=== PATIENT | male | born 1935 | race Caucasian/White ===

== ENCOUNTER 2018-11-29 08:40 | Inpatient (IN) | payer OTHER ==
[~2018-11-29] VITALS: Ht 180.3 cm; Wt 77.3 kg
[~2018-11-29 08:40] MED LIST: ROSU10TA PO
[2018-11-29 09:55] LABS: BASOPHILS % (AUTO) 0.4 % (0.0-5.0); EOSINOPHILS % (AUTO) 0.3 % (0.0-8.0); LYMPHOCYTES % (AUTO) 8.4 % (21.0-51.0); MEAN CORPUSCULAR HEMOGLOBIN 32.4 pg (27.0-33.0); MEAN CORPUSCULAR VOLUME 95.4 fL (79-99); MONOCYTES % (AUTO) 9.9 % (3.0-13.0); PLATELET COUNT (AUTO) 212 K/uL (130-400); RED BLOOD CELL COUNT(AUTO) 5.14 MIL/uL (4.50-6.20); RED CELL DISTRIBUTION WIDTH 16.4 % (11.0-15.5); WHITE BLOOD COUNT (AUTO) 6.8 K/uL (4.8-10.8)
[2018-11-29 09:58] LABS: CREATININE 1.1 mg/dL (0.5-1.5)
[2018-11-29 10:02] LABS: ALBUMIN 2.6 g/dL (3.5-5.0); BILIRUBIN,TOTAL 1.6 mg/dL (0.2-1.0); MAGNESIUM 2.4 mg/dL (1.80-2.40); TOTAL PROTEIN, SERUM 7.3 g/dL (6.0-8.3)
[2018-11-29 10:23] LABS: INR 0.97 (0.85-1.15); PARTIAL THROMBOPLASTIN TIME 31.2 SEC (26.3-35.5); PROTHROMBIN TIME 10.2 SEC (9.6-11.6)
[2018-11-29 11:34] LABS: APPEARANCE,URINE Clear (CLEAR); BILIRUBIN,URINE Small (NEGATIVE); COLOR,URINE Dark Yellow (YELLOW); GLUCOSE, URINE (UA) Negative (NEGATIVE); KETONES,URINE Trace mg/dL (NEGATIVE); LEUKOCYTE ESTERASE ,URINE Trace (NEGATIVE); NITRATE,URINE Negative (NEGATIVE); OCCULT BLOOD,URINE Negative (NEGATIVE); PH,URINE 6.5 (5.0-8.0); PROTEIN,URINE Negative (NEGATIVE)
[2018-11-29 11:51] LABS: BACTERIA,URINE None Seen /HPF (None Seen); MUCUS,URINE Moderate LPF (None Seen); RBC,URINE None Seen /HPF (0-1); SQUAMOUS EPITHELIAL CELL,UR 0-2 /HPF (0-2); WBC,URINE 0-1 /HPF (0-1)
[2018-11-29] MEDS ORDERED: POTASSIUM CHLORIDE 10% ELIXIR 20 MEQ/15 ML UDCUP PO PRN (14:00)
[2018-11-29] MEDS ORDERED: ONDANSETRON HCL 4 MG/2 ML VIAL IVP PRN (14:00)
[2018-11-29] MEDS ORDERED: ACETAMINOPHEN 325 MG TAB PO PRN ×2 (14:00)
[2018-11-29] MEDS ORDERED: ZOLPIDEM TARTRATE 5 MG TAB PO PRN (14:00)
[2018-11-29] MEDS ORDERED: NITROGLYCERIN 0.4 MG SL TAB SL PRN (14:00)
[2018-11-29] MEDS ORDERED: DiphenhydrAMINE HCL 50 MG/ML VIAL IVP PRN (14:00)
[2018-11-29] MEDS: SODIUM CHLORIDE 0.9% 1000ML 1,000 ML IV SCH (14:00)
[2018-11-29] MEDS ORDERED: LIDOCAINE HCL-MPF 1% 2ML VIAL IJ PRN (14:00)
[2018-11-29] MEDS ORDERED: POTASSIUM CHLORIDE 20 MEQ ERTAB PO PRN (14:00)
[2018-11-29] MEDS ORDERED: LACTULOSE 20 GM/30 ML UDCUP PO PRN (14:00)
[2018-11-29] MEDS ORDERED: MAG HYDROX/AL HYDROX/SIMETH ES 30 ML SUSP UDCUP PO PRN (14:00)
[2018-11-29] MEDS ORDERED: CLONIDINE HCL 0.1 MG TABLET PO PRN (14:00)
[2018-11-29] MEDS ORDERED: GUAIFENESIN SUGAR-FREE 100 MG/5 ML UDCUP PO PRN (14:00)
[2018-11-29] MEDS ORDERED: POTASSIUM CHLORIDE 20MEQ/100ML 100 ML IV PRN (14:00)
[2018-11-29] MEDS ORDERED: GUAIFENESIN-DM 200/20 MG 10 ML PO PRN (14:00)
[2018-11-29] MEDS ORDERED: DIPHENHYDRAMINE HCL 25 MG CAPSULE PO PRN (14:00)
[2018-11-29] MEDS ORDERED: SODIUM CHLORIDE 0.9% 1000ML 1,000 ML IV ONE (14:10)
--- NOTE | 2018-11-29 19:44 | NUR ---
D/C PLAN Pt with [facility]. CM spoke to dtr named Judith Fernandez. [facility] pt lives with spouse. She is visiting from out of town. [facility] pt was receiving home health for mcfp and PT. Dtr states Dr. Pereira was attempting to place pt at [facility]. Dtr requesting residential case manager f/u with spouse for final d/c plan. Plan for now is short term snf/rehab vs home with same home health. Dtr states pt was ambulating with wk three weeks ago. [facility] pt condition has been declining rapidly. CM asked if pt and family has discussed palliative care. Dtr states pt and spouse currently want to continue to chemo treatment and have not discussed palliative care. [facility] pts oncologist is Dr. Menon. CM explained request can be sent for short term snf/rehab but will need insurance auth. Dtr verbalized understanding. CM to f/u Addendum: 11/29/18 at 1948 by ALEXANDRO SARGENT CM Amended: Links added.
[2018-11-29 21:38] VITALS: BP 116/67
[2018-11-30] VITALS (12 sets, daily range): BP systolic 97–125; BP diastolic 52–74
[2018-11-30 04:32] LABS: HEMATOCRIT 45.7 % (42-54); MEAN CORPUSCULAR HEMOGLOBIN 32.7 pg (27.0-33.0); MEAN CORPUSCULAR HGB CONC 34.2 g/dL (32.0-36.0); MEAN CORPUSCULAR VOLUME 95.5 fL (79-99); PLATELET COUNT (AUTO) 177 K/uL (130-400); RED BLOOD CELL COUNT(AUTO) 4.79 MIL/uL (4.50-6.20); RED CELL DISTRIBUTION WIDTH 16.3 % (11.0-15.5); WHITE BLOOD COUNT (AUTO) 6.8 K/uL (4.8-10.8)
[2018-11-30 04:51] LABS: ALBUMIN 2.2 g/dL (3.5-5.0); BILIRUBIN,TOTAL 1.3 mg/dL (0.2-1.0); CREATININE 0.9 mg/dL (0.5-1.5); POTASSIUM 4.5 mmol/L (3.5-5.1); TOTAL PROTEIN, SERUM 6.3 g/dL (6.0-8.3)
[2018-11-30] MEDS: SODIUM CHLORIDE 0.9% 1000ML 1,000 ML IV SCH (10:48)
[2018-11-30] MEDS: MULTIVITAMIN TABLET PO SCH (10:48)
[2018-11-30] MEDS ORDERED: SPIR50TA PO (10:57)
[2018-11-30] MEDS ORDERED: POTA-9 PO (10:57)
[2018-11-30] MEDS ORDERED: FURO40TA5 PO (10:57)
[2018-11-30] MEDS ORDERED: LACT10SO8 PO (10:57)
[2018-11-30] MEDS ORDERED: MULT-1289 PO (11:00)
[2018-11-30] MEDS ORDERED: DIATR MEGLU/DIATRIZOATE SODIUM 30 ML BOTTLE ONE (11:23)
[2018-11-30] MEDS ORDERED: IOHEXOL-350 75 ML VIAL IV ONE (13:49)
--- NOTE | 2018-11-30 15:24 | NUR ---
CM Note: Yuridia Fuller pending ins auth and acceptance CM met with pt and spouse, discussed MD recommendations for short term placement prior to restarting chemo, given in network facilities, spouse and pt agreeable, JESSENIA signed for [facility]. Faxed clinicals, order, and pasrr. Spoke to Triny Alves, received clinicals, aware pt pending PT eval and treatment, will fax notes as soon as available. Primary nurse aware. CM to cont to follow up.
--- NOTE | 2018-11-30 15:35 | NUR ---
U/S GD PARACENTESIS PROCEDURE PERFORMED BY DR Ok RENE. PUNCTURE SITE RLQ AND PATIENT TOLERATED PROCEDURE WELL. TOTAL REMOVED 7 LITERS OF CLOUDY YELLOW FLUID. END OF PROCEDURE AT 1520. CATHETER REMOVED AND DRESSING APPLIED. NO BLEEDING NOTED. REPORT GIVEN TO Drew ACOSTA LVN AND PATIENT TRANSPORTED TO CT SCAN FOR AN EXAM PRIOR TO ROOM 306-1 VIA BED AT 1535. AAO X3 WITH NO C/O PAIN.
[2018-11-30] MEDS ORDERED: ALBUMIN (HUMAN) 25% 200 ML IV ONE (15:45)
--- NOTE | 2018-11-30 16:29 | NUR ---
Nutrition intervention: Nutrition notification for nutrition eval. Pt admitted for AMS, liver malignancy. Pt currently on heart healthy diet with good oral intake for breakfast. 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 DANIEL informed that if swallowing issues were present recommendations for CAMPUS AMBASSADOR would be made. Pt with elevated ammonia 66, however with with liver malignancy, recommend protein supplementation once ammonia levels controlled. Pt and verbalized understanding, Pt's nurse aware of recommendations made. LBM 2/3. Alb 2.2. Addendum: 11/30/18 at [address] Amended: Links added.
[2018-12-01] VITALS: BP 117/59
[2018-12-01] MEDS: SODIUM CHLORIDE 0.9% 1000ML 1,000 ML IV SCH (00:53)
[2018-12-01 04:00] VITALS: BP 107/64
[2018-12-01 04:38] LABS: HEMATOCRIT 45.6 % (42-54); MEAN CORPUSCULAR HEMOGLOBIN 32.7 pg (27.0-33.0); MEAN CORPUSCULAR HGB CONC 34.3 g/dL (32.0-36.0); MEAN CORPUSCULAR VOLUME 95.3 fL (79-99); PLATELET COUNT (AUTO) 176 K/uL (130-400); RED BLOOD CELL COUNT(AUTO) 4.79 MIL/uL (4.50-6.20); RED CELL DISTRIBUTION WIDTH 16.6 % (11.0-15.5); WHITE BLOOD COUNT (AUTO) 7.6 K/uL (4.8-10.8)
[2018-12-01 04:55] LABS: CREATININE 0.8 mg/dL (0.5-1.5); POTASSIUM 4.6 mmol/L (3.5-5.1)
--- NOTE | 2018-12-01 05:35 | NUR ---
CRITICAL RESULT AMMONIA LEVEL 75-CALL PLACED TO DR BUTTS ANSWERING SERVICE-AWAITING CALL BACK
[2018-12-01 08:00] VITALS: BP 100/66
[2018-12-01] MEDS: MULTIVITAMIN TABLET PO SCH (09:36)
[2018-12-01] MEDS ORDERED: PHARMACY COMMUNICATION MISC SCH (09:45)
[2018-12-01 12:00] VITALS: BP 105/64
--- NOTE | 2018-12-01 12:54 | NUR ---
DYSPHAGIA EVAL COMPLETE. +S/S OF ASPIRATION WITH THIN LIQUIDS VIA STRAW. RECOMMEND MECHANICAL SOFT, THIN LIQUIDS; PILLS WHOLE WITH LIQUIDS. PATIENT INFORMATION: Pt IS AN 83 Y.O. MALE REFERRED FOR A BEDSIDE DYSPHAGIA EVALUATION SECONDARY TO C/O DIFFICULTY SWALLOWING FOODS AND LIQUIDS. Pt AAOX2 AND COOPERATIVE DURING THE EVALUATION. AT BEDSIDE AND SERVED THE PRIMARY INFORMANT FOR MEDICAL AND SOCIAL HISTORY. Pt CURRENTLY ADMITTED SECONDARY TO ABDOMINAL DISTENTION AND ALTERED MENTAL STATUS. Pt HAS A PAST MEDICAL HISTORY SIGNIFICANT FOR PROSTATE CANCER, LIVER CANCER, AND PROSTATE CANCER. EVALUATION: Pt PRESENTS WITH MILD OROPHARYNGEAL DYSPHAGIA CAUSED BY ORAL MOTOR WEAKNESS, DELAYED PHARYNGEAL RESPONSE TRIGGER, EVIDENCED BY DECREASED ROTARY MOTION DURING MASTICATION, HOLDING OF BOLUS IN ORAL CAVITY AND MULTIPLE SWALLOWS RESULTING IN +S/S OF ASPIRATION WITH THIN LIQUIDS VIA STRAW SIP. RECOMMENDATIONS: 1. MECHANICAL SOFT/CHOPPED, THIN LIQUID DIET; PILLS WHOLE WITH LIQUIDS. 2. COMPENSATORY STRATEGIES: *SEATED AT 90 DEGREE ANGLE *ALTERNATE BITES AND SIPS *SLOW RATE *NO STRAWS G-CODES SWALLOWING: [id number] Addendum: 12/01/18 at [address] Amended: Links added.
--- NOTE | 2018-12-01 13:11 | NUR ---
CM Note: Cancel [facility] per spouse and pt request CM met with pt and spouse as per spouse request. Rediscussed poc, at this time spouse states pt and family has decided to cancel [facility] placement and will discuss dcp, spouse to call CM this afternoon once decision made. As per spouse possibly home cont chemo vs home w/hospice vs other placement.Primary nurse aware. CM to cont to follow up.
[2018-12-01] MEDS: LACTULOSE 20 GM/30 ML UDCUP PO SCH (15:50)
[2018-12-01 16:00] VITALS: BP 105/65
--- NOTE | 2018-12-01 16:38 | NUR ---
CM Note: Fam still pending decision for dcp CM met with pt and spouse, at this time still has not decided on discharge plan. Spouse stated will call CM once decision made. DC plan home vs home w/[facility], vs SNF, vs SNF w/hospice, vs Hospice house. Primary nurse aware. CM to cont to follow up.
[2018-12-01 20:00] VITALS: BP 98/64
[2018-12-02] VITALS (7 sets, daily range): BP systolic 92–190; BP diastolic 58–90
[2018-12-02 05:19] LABS: MEAN CORPUSCULAR HGB CONC 34.4 g/dL (32.0-36.0); MEAN CORPUSCULAR VOLUME 95.7 fL (79-99); NUCLEATED RED BLOOD CELLS 0.2 % (0.0-0.19); PLATELET COUNT (AUTO) 168 K/uL (130-400); RED BLOOD CELL COUNT(AUTO) 5.01 MIL/uL (4.50-6.20); RED CELL DISTRIBUTION WIDTH 16.6 % (11.0-15.5); WHITE BLOOD COUNT (AUTO) 7.8 K/uL (4.8-10.8)
[2018-12-02 05:49] LABS: POTASSIUM 5.3 mmol/L (3.5-5.1)
[2018-12-02] MEDS: SODIUM CHLORIDE 0.9% 1000ML 1,000 ML IV SCH (07:32)
[2018-12-02] MEDS ORDERED: LACTULOSE 20 GM/30 ML UDCUP PO SCH (09:00)
[2018-12-02] MEDS: LACTULOSE 20 GM/30 ML UDCUP PO SCH (10:13)
[2018-12-02] MEDS: MULTIVITAMIN TABLET PO SCH (10:13)
[2018-12-03 03:55] VITALS: BP 96/59
[2018-12-03] MEDS: SODIUM CHLORIDE 0.9% 1000ML 1,000 ML IV SCH ×2 (04:09→21:26)
[2018-12-03 05:18] LABS: HEMATOCRIT 45.9 % (42-54); MEAN CORPUSCULAR HGB CONC 34.6 g/dL (32.0-36.0); MEAN CORPUSCULAR VOLUME 95.3 fL (79-99); PLATELET COUNT (AUTO) 168 K/uL (130-400); RED BLOOD CELL COUNT(AUTO) 4.82 MIL/uL (4.50-6.20); RED CELL DISTRIBUTION WIDTH 16.5 % (11.0-15.5); WHITE BLOOD COUNT (AUTO) 7.6 K/uL (4.8-10.8)
[2018-12-03 07:44] VITALS: BP 92/53
[2018-12-03] MEDS: MULTIVITAMIN TABLET PO SCH (08:46)
[2018-12-03] MEDS: LACTULOSE 20 GM/30 ML UDCUP PO SCH (08:46)
[2018-12-03 12:00] VITALS: BP 97/62
[2018-12-03 16:05] VITALS: BP 107/67
[2018-12-03 20:00] VITALS: BP 99/56
[2018-12-03 23:38] VITALS: BP 100/58
[2018-12-04 04:00] VITALS: BP 113/65
[2018-12-04 08:07] VITALS: BP 98/58
[2018-12-04] MEDS: MULTIVITAMIN TABLET PO SCH (10:14)
[2018-12-04] MEDS: LACTULOSE 20 GM/30 ML UDCUP PO SCH (10:15)
[2018-12-04 11:30] VITALS: BP 98/57
[2018-12-04 15:30] VITALS: BP 100/60
[2018-12-04 20:00] VITALS: BP 107/60
[2018-12-04 23:47] VITALS: BP 94/51
[2018-12-05 04:00] VITALS: BP 94/58
--- NOTE | 2018-12-05 04:54 | NUR ---
STATUS Pt is going for Paracentesis today.Resting well.No distress noted. at bedside.
[2018-12-05 07:03] LABS: INR 1.02 (0.85-1.15); PARTIAL THROMBOPLASTIN TIME 31.4 SEC (26.3-35.5); PROTHROMBIN TIME 10.7 SEC (9.6-11.6)
[2018-12-05 08:00] VITALS: BP 109/63
[2018-12-05] MEDS: MULTIVITAMIN TABLET PO SCH (09:00)
[2018-12-05] MEDS: LACTULOSE 20 GM/30 ML UDCUP PO SCH (09:00)
--- NOTE | 2018-12-05 09:03 | NUR ---
PROCEDURE PATIENT SCHEDULED FOR INSERTION OF PIGTAIL CATHETER FOR FREQUENT DRAINAGE FROM [facility]. DR Tanisha RODAS MADE AWARE AND CANCELLED PROCEDURE. THERE IS A HIGH RISK OF INFECTION WITH PIGTAIL CATHETERS FOR [facility]. REQUEST ORDERED FOR FILLING MACHINE SET UP MECHANIC FOR INDWELLING CATHETER PLACEMENT FOR TODAY. PROCEDURE OUTCOME REPORTED TO Fay CRUZ RN AND PATIENT TRANSPORTED TO [facility] VIA BED AT 0900.
[2018-12-05 12:00] VITALS: BP 91/58
--- NOTE | 2018-12-05 15:00 | NUR ---
THORACENTESIS WITH PLACEMENT OF JULIO CÉSAR CATH. HAS BEEN RESCHEDULED FOR EARLY AM. PT. AND SPOUSE HAVE BEEN INFORMED.
[2018-12-05 16:00] VITALS: BP 97/62
[2018-12-05 20:53] VITALS: BP 96/56
--- NOTE | 2018-12-05 23:02 | NUR ---
HOB UP Pt resting quietly in bed,respirations even and unlabored.Daughter at bedside.
[2018-12-06] VITALS (23 sets, daily range): BP systolic 91–127; BP diastolic 51–73
--- NOTE | 2018-12-06 07:30 | NUR ---
REPORT RECEIVED FROM PM SHIFT. NPO FOR THORACENTESIS AND PLACEMENT OF JULIO CÉSAR CATH BY IR.
--- NOTE | 2018-12-06 08:20 | NUR ---
TO BASKET SORTER NOW.
[2018-12-06] MEDS ORDERED: IODIXANOL 320 MG/ML 100 ML VIAL ONE (08:26)
[2018-12-06] MEDS ORDERED: LIDOCAINE HCL 1% MDV 50ML VIAL ONE (08:26)
[2018-12-06] MEDS: ALBUMIN (HUMAN) 25% 100 ML IV SCH ×2 (10:00→20:07)
--- NOTE | 2018-12-06 10:05 | NUR ---
S/P JULIO CÉSAR CATHETER PLACEMENT AND REMOVAL OF ASCITES FLUID RECEIVED PATIENT S/P JULIO CÉSAR CATHETER PLACEMENT FOR DRAINAGE OF [facility] FLUID. JULIO CÉSAR CATHETER PLACED TO RIGHT SIDE OF THE ABDOMEN BY DR. GARBER IN CUSTOM DRESSMAKER. PT TRANSFERRED TO RADIOLOGY FOR REMOVAL OF [facility]ITES FLUID. TOTAL REMOVED LITERS OF 6.5 LITERS OF CLEAR YELLOW FLUID DRAINED. PT TOLERATED PROCEDUR WELL. END OF PROCEDURE AT 1045. JULIO CÉSAR CATHETER CLAMPED. CALLED REPORT TO VELVET STARK. PT TRANSPORTED TO 3RD FLOOR RM 306 VIA BED. STABLE, AAO X 3.
--- NOTE | 2018-12-06 10:30 | NUR ---
DR. HERNANDEZ IN TO SEE PT. FROM HIS STANDPOINT OK TO DISCHARGE, WILL FOLLOW UP IN OFFICE. DISCUSSED DOING PFTS IN OFFICE AT A LATER DATE.
--- NOTE | 2018-12-06 11:00 | NUR ---
BACK TO ROOM FROM RAD. DEPT.RT.SIDE ABDOMEN,.JULIO CÉSAR DRAIN IN PLACE AND CLAMPED. DRESSING CLEAN AND DRY,PT,. IS AWAKE AND HUNGRY AND WANTS HIS COFFEE.
[2018-12-06] MEDS: LACTULOSE 20 GM/30 ML UDCUP PO SCH (11:24)
[2018-12-06] MEDS: MULTIVITAMIN TABLET PO SCH (11:24)
--- NOTE | 2018-12-06 13:36 | NUR ---
Nutrition f/u: Pt with diet advanced to regular mechanical soft s/p paracentesis. Pt smiling and appears to be feeling better. Pt gave multiple food choices he likes, diet order to reflect pt's preference. Recommendations: Continue current diet therapy. Nutrition supplementation QD for increased caloric and protein intake. Consult RD as additional nutrition concerns arise. Addendum: 12/06/18 at [address] Amended: Links added.
--- NOTE | 2018-12-06 16:20 | NUR ---
CM Note: [facility] [place] cancelled per pt and fam request CM met with pt and family. As per pt and fam request cancel [facility] [place], change to Yuridia Quezada. Faxed clinicals, order, and pasrr. Spoke to Triny will come karl pt. Pt pending ins auth and acceptance. Primary nurse aware. CM to cont to follow up. Spoke to Jonathan dorman/[facility] informed of cancellation as per pt and fam request. Primary nurse aware. CM to cont to follow up.
--- NOTE | 2018-12-06 17:00 | NUR ---
CALLED TO ROOM BY SPOUSE, PT. IS VOMITING BLOOD, STATES HE FEELS LIGHT HEADED. BP 118/71, HR 97, 02 SAT 89% 02 INCREASED TO 3L.
--- NOTE | 2018-12-06 17:20 | NUR ---
BP99/58, HR 97, 02 SAT 87% 0N 3L 02. PAGED DR. BUTTS TO INFORM HIM OF WHAT IS GOING ON. WAITING FOR A CALL BACK.
--- NOTE | 2018-12-06 20:19 | NUR ---
JULIO CÉSAR CATHETER [place] catheter drained 1.5 liters out.Vs monitored q 5 min during procedure.Post procedure q 15 min x 4,then q 30 x 2.Pt tolerated procedure with minimal discomfort.Albumin was given prior to draining abdominal fluid.
[2018-12-07] VITALS: BP 107/62
--- NOTE | 2018-12-07 | NUR ---
RESTING Pt quietly resting in bed,respirations even and unlabored. at bedside.
--- NOTE | 2018-12-07 03:11 | NUR ---
RESTING Pt quietly resting in bed,turned to his rt side.No distress noted.
[2018-12-07 04:00] VITALS: BP 101/56
[2018-12-07 08:00] VITALS: BP 99/59
[2018-12-07] MEDS: ALBUMIN (HUMAN) 25% 100 ML IV SCH ×2 (10:48→21:54)
[2018-12-07] MEDS: MULTIVITAMIN TABLET PO SCH (10:49)
[2018-12-07] MEDS: LACTULOSE 20 GM/30 ML UDCUP PO SCH (10:49)
[2018-12-07 12:00] VITALS: BP 104/57
--- NOTE | 2018-12-07 13:00 | NUR ---
CM Note: Yuridia pending ins auth Spoke to Triny Alves, stated sent request to ins. Pt pending ins auth at this time. Primary nurse aware. CM to cont to follow up.
--- NOTE | 2018-12-07 15:17 | NUR ---
[facility] CONSULT UNABLE TO ASSESS PATIENT AT THIS TIME. SPOKE WITH PATIENT'S NURSE, RONDA; WHO STATES PATIENT DOES NOT HAVE ANY SKIN BREAKDOWN AT THIS TIME. WILL RE CONSULT [facility] IF NEEDED.
[2018-12-07 20:00] VITALS: BP 103/59
[2018-12-07 23:43] VITALS: BP 105/62
[2018-12-08] VITALS (30 sets, daily range): BP systolic 91–117; BP diastolic 44–65
[2018-12-08 05:08] LABS: HEMATOCRIT 45.9 % (42-54); PLATELET COUNT (AUTO) 147 K/uL (130-400); RED BLOOD CELL COUNT(AUTO) 4.73 MIL/uL (4.50-6.20); RED CELL DISTRIBUTION WIDTH 17.1 % (11.0-15.5); WHITE BLOOD COUNT (AUTO) 8.1 K/uL (4.8-10.8)
[2018-12-08 05:35] LABS: ALBUMIN 3.1 g/dL (3.5-5.0); BILIRUBIN,TOTAL 1.3 mg/dL (0.2-1.0); TOTAL PROTEIN, SERUM 6.4 g/dL (6.0-8.3)
[2018-12-08] MEDS ORDERED: SODIUM CHLORIDE 3% FOR INHALATION 4 ML/AMP VIAL.NEB IH ONE (08:46)
[2018-12-08 08:56] LABS: TROPONIN I 0.1 ng/mL (0.00-0.06)
[2018-12-08] MEDS: MULTIVITAMIN TABLET PO SCH (10:27)
[2018-12-08] MEDS: LACTULOSE 20 GM/30 ML UDCUP PO SCH (10:27)
[2018-12-08] MEDS: ALBUMIN (HUMAN) 25% 100 ML IV SCH ×2 (10:27→21:27)
[2018-12-08] MEDS ORDERED: IPRATROPIUM/ALBUTEROL SULFATE 3 ML SOLUTION IH ONE (11:07)
[2018-12-08 11:26] LABS: TROPONIN I 0.09 ng/mL (0.00-0.06)
[2018-12-08] MEDS ORDERED: ACETYLCYSTEINE 20% 200MG/ML 4ML VIAL IH SCH (12:00)
--- NOTE | 2018-12-08 14:26 | NUR ---
CM Note: [facility] cancelled as per pt and fam request. [facility] pending ins auth and acceptance CM met with pt and family as per fam request. Per pt and fam cancel [facility], would like to go to [facility] instead, as per daughter they went to see facility and they like it more than [facility], aware [facility] only has contract w/[facility], [facility], or [facility], verbalized understanding, state follow through w/[facility]. Called Triny w/Yuridia, cancelled request. Faxed clinicals, order and pasrr to [facility]. Spoke to Adrienne received clinicals, pasrr, and order. Will come eval pt. Pt pending ins auth and acceptance. Primary nurse aware of changed w/poc. CM to cont to follow up.
[2018-12-08 16:49] LABS: TROPONIN I 0.1 ng/mL (0.00-0.06)
--- NOTE | 2018-12-08 18:28 | NUR ---
D/C PLANNING TO [facility] [place] cash applications representative here to evaluate pt, stated they don't accept pt with the [facility], primary nurse updated, nursing will continue to follow up.
[2018-12-09] VITALS (20 sets, daily range): BP systolic 90–105; BP diastolic 48–77
[2018-12-09] MEDS: MULTIVITAMIN TABLET PO SCH (10:17)
[2018-12-09] MEDS: ALBUMIN (HUMAN) 25% 100 ML IV SCH ×2 (10:17→21:49)
[2018-12-09] MEDS: LACTULOSE 20 GM/30 ML UDCUP PO SCH (10:17)
--- NOTE | 2018-12-09 12:48 | NUR ---
CM Note: [facility] denied, unable to take care of rose catheter. Pending HNR vs BNR decision CM met with pt and spouse, informed of denial from [facility], unable to meet pt's need, facility unable to take care of rose catheter neg pressure as per AJ. Pt and spouse made aware [facility] and HNR/BNR able to take care of rose catheter. Pt and spouse pending to decide stated does not want [facility] at this time. Daughter stated will tour HNR and BNR first and call CM once decision made. Primary nurse aware.
--- NOTE | 2018-12-09 16:04 | NUR ---
CM Note: [facility]2 [facility] pending ins auth CM met with pt and family, decided would like to try [facility]1 [facility] [place], #2 [facility] if unable to take pt at [facility]. Faxed clinicals, order, and pasrr. Spoke to Margo covering [facility] and [facility], will come eval pt stated both facilities able to take care of rose catheter. Pt pending ins auth and acceptance. Primary nurse aware. CM to cont to follow up.
--- NOTE | 2018-12-09 16:34 | NUR ---
Nutrition f/u: Pt with diet changed to regular, mechanical soft. Pt with good oral intake and tolerance. Pt appears weak however was able to voice food items he wished to receive. DANIEL has encouraged family to bring food from home appropriate to MANAGER [employer] EVENTS texture recommendations to provide. Nurse Brennon has been notified of RD recommendations. Recommendations: continue current diet therapy. Allow family to bring pt's preferred foods from home when not available in kitchen. Consult RD as nutrition concerns arise. Addendum: 12/09/18 at [address] Amended: Links added.
[2018-12-10] VITALS (7 sets, daily range): BP systolic 85–97; BP diastolic 53–56
[2018-12-10] MEDS: MULTIVITAMIN TABLET PO SCH (10:21)
[2018-12-10] MEDS: LACTULOSE 20 GM/30 ML UDCUP PO SCH (10:21)
[2018-12-10] MEDS: ALBUMIN (HUMAN) 25% 100 ML IV SCH ×2 (10:22→21:45)
[2018-12-11] VITALS: BP 96/49
[2018-12-11 04:00] VITALS: BP 90/57
[2018-12-11 07:00] VITALS: BP 96/56
[2018-12-11] MEDS: LACTULOSE 20 GM/30 ML UDCUP PO SCH (10:33)
[2018-12-11] MEDS: ALBUMIN (HUMAN) 25% 100 ML IV SCH ×2 (10:34→22:14)
[2018-12-11] MEDS: MULTIVITAMIN TABLET PO SCH (10:34)
[2018-12-11 11:00] VITALS: BP 110/60
[2018-12-11 16:00] VITALS: BP 99/54
[2018-12-11 19:00] VITALS: BP 93/56
[2018-12-11] MEDS ORDERED: ALBUMIN (HUMAN) 25% 100 ML IV ONE (22:06)
[2018-12-12] VITALS (7 sets, daily range): BP systolic 98–108; BP diastolic 47–60
[2018-12-12] MEDS: LACTULOSE 20 GM/30 ML UDCUP PO SCH (12:52)
[2018-12-12] MEDS: MULTIVITAMIN TABLET PO SCH (12:52)
[2018-12-12] MEDS: ALBUMIN (HUMAN) 25% 100 ML IV SCH ×2 (12:53→21:33)
--- NOTE | 2018-12-12 13:40 | NUR ---
MICHELLE PLANNING UPDATE- NEEDING INPUT FROM TAM MAGDALENO FOR [facility] CONTACTED THIS HARNESS CUTTER- STATES FACLITY NEEDS TO KNOW THE PLAN FOR CHEMO- FAMILY STATES NO MORE CHEMO PLANNED, MD OFFICE STATES THERE IS A PLAN FOR CHEMO < 30 DAYS . DISCREPANCY HOLDING UP ACCEPTANCE
--- NOTE | 2018-12-12 14:30 | NUR ---
SPOUSE CLARIFIES CHEMO SPOKE TO SPOUSE & PATIENT WITH PRIMARY RN AT BEDSIDE. SPOUSE CONFIRMS THAT PT HAS DECIDED NOT TO HAVE ANYMORE CHEMO, GOAL IS TO RECOVER FROM PAST ROUND OF CHEMO WITH REHAB AND BE STRONG ENOUGH TO GO HOME.
--- NOTE | 2018-12-12 15:57 | NUR ---
Nutrition f/u: Pt continues on regular diet. Pt's po intake declining, states pt has an appetite but is unable to finish all of his meals. Pt continues to drink nutrition supplement. DANIEL to modify diet to 6small meals a day to provide smaller meals more frequently throughout the day. [facility] 12/07-concerns for constipation, pt receiving lactulose. Ammo 46. Addendum: 12/12/18 at [address] Amended: Links added.
[2018-12-12] MEDS ORDERED: BISACODYL 10 MG SUPP.RECT RC PRN (18:00)
[2018-12-13 03:05] VITALS: BP 109/55
[2018-12-13 07:30] VITALS: BP 97/58
[2018-12-13] MEDS: MULTIVITAMIN TABLET PO SCH (10:35)
[2018-12-13] MEDS: ALBUMIN (HUMAN) 25% 100 ML IV SCH ×2 (10:35→21:20)
[2018-12-13] MEDS: LACTULOSE 20 GM/30 ML UDCUP PO SCH (10:35)
[2018-12-13 11:30] VITALS: BP 133/67
--- NOTE | 2018-12-13 12:07 | NUR ---
CLARIFICATION OF PAST FUNCTION PT NOTES/ INITIAL ASSESSEMENT REVIEWED. PER FAMILY, PT DID HAVE W/C AT HOME F=BUT WAS NOT WHEELCHAIR DEPENDENT, WAS USING A WHEELCHAIR PRN AND WAS AMBULATORY WITH A WALKER INSIDE THE HOME
--- NOTE | 2018-12-13 12:30 | NUR ---
DYSPHAGIA RE-EVAL COMPLETE. +S/S OF ASPIRATION WITH THIN LIQUIDS. RECOMMEND MECHANICAL SOFT/CHOPPED, NECTAR-THICK LIQUIDS; PILLS CRUSHED WITH APPLESAUCE. PATIENT INFORMATION: Pt IS AN 83 Y.O. MALE REFERRED FOR A BEDSIDE DYSPHAGIA RE-EVALUATION SECONDARY TO C/O DIFFICULTY SWALLOWING FOODS AND LIQUIDS. Pt AAOX2 AND COOPERATIVE DURING THE EVALUATION. Pt WITH DECREASED VOCAL INTENSITY AT THIS TIME. AND DAUGHTER AT BEDSIDE AND SERVED THE PRIMARY INFORMANT FOR MEDICAL AND SOCIAL HISTORY. Pt CURRENTLY ADMITTED SECONDARY TO ABDOMINAL DISTENTION AND ALTERED MENTAL STATUS. Pt HAS A PAST MEDICAL HISTORY SIGNIFICANT FOR PROSTATE CANCER, LIVER CANCER, AND PROSTATE CANCER. EVALUATION: Pt PRESENTS WITH MILD ORAL AND MODERATE PHARYNGEAL DYSPHAGIA CAUSED BY ORAL MOTOR WEAKNESS, DELAYED PHARYNGEAL RESPONSE TRIGGER, AND DECREASED TONGUE BASE RETRACTION EVIDENCED BY DECREASED ROTARY MOTION DURING MASTICATION, HOLDING OF BOLUS IN ORAL CAVITY AND MULTIPLE SWALLOWS RESULTING IN +S/S OF ASPIRATION WITH THIN LIQUIDS. RECOMMENDATIONS: 1. MECHANICAL SOFT/CHOPPED, NECTAR-THICK LIQUIDS; PILLS CRUSHED WITH APPLESAUCE. 2. COMPENSATORY STRATEGIES: *SEATED AT 90 DEGREE ANGLE *ALTERNATE BITES AND SIPS *SLOW RATE *NO STRAWS 3. SKILLED SPEECH THERAPY 3-5XWK TOLERATED TARGETING SWALLOWING GOALS: DYSPHAGIA THERAPY 3-5X WEEK TO INCREASE ORAL MOTOR STRENGTH AND PHARYNGEAL SWALLOW: LTG#1: Pt WILL TOLERATE LEAST RESTRICTIVE DIET TO MEET NUTRITION/HYDRATION WITH NO S/S OF ASPIRATION. LTG#2: SKILLED EDUCATION Pt/FAMILY/STAFF STG#1: Pt WILL PARTICIPATE IN LARYNGEAL ELEVATION/EXCURSION EXERCISES WITH 80% ACCURACY. STG#2: Pt WILL PARTICIPATE IN TONGUE BASE RETRACTION EXERCISES WITH 80% ACCURACY. STG#3: Pt WILL PARTICIPATE IN ORAL MOTOR EXERCISES WITH 80% ACCURACY. STG#4: Pt WILL PARTICIPATE IN PLEASURE FEEDS OF ICE CHIPS WITH NO S/S OF ASPIRATION. STG#5: PT WILL BE ABLE TO PARTICIPATE IN MBSS AFTER 2-4 WEEKS OF THERAPEUTIC INTERVENTION. STG#6: SKILLED EDUCATION Pt/FAMILY/STAFF. STG#7: Pt WILL TOLERATE MECHANICAL SOFT/CHOPPED, NECTAR-THICK LIQUID DIET WITH NO S/S OF ASPIRATION. G-CODES SWALLOWING: [id number] Addendum: 12/13/18 at 1409 by FARHAD JERONIMO, SPT ST Amended: Links added.
[2018-12-13 15:30] VITALS: BP 106/62
[2018-12-13 19:40] VITALS: BP 102/54
[2018-12-13 23:38] VITALS: BP 121/68
[2018-12-14 04:16] VITALS: BP 100/57
[2018-12-14 08:00] VITALS: BP 98/59
--- NOTE | 2018-12-14 08:23 | NUR ---
IN TO SEE PT. ORDER TO HOLD ABD DRAIN FOR THE NEXT 3 DAYS. ALSO ORDERED EYE GGTS FOR RT. EYE WHICH IS RED AND PER DAUGHTER AND PM NURSE HAS HAD SOME YELLOW DISCHARGE.
[2018-12-14] MEDS ORDERED: GENTAMICIN SULFATE 0.3% 3.5 GM OPHTH OINT OD SCH (09:00)
--- NOTE | 2018-12-14 09:00 | NUR ---
rose cat. in place, rt. lower abd and clamped.
[2018-12-14] MEDS: ALBUMIN (HUMAN) 25% 100 ML IV SCH ×2 (09:39→21:32)
[2018-12-14] MEDS: LACTULOSE 20 GM/30 ML UDCUP PO SCH (09:40)
[2018-12-14] MEDS: MULTIVITAMIN TABLET PO SCH (09:40)
[2018-12-14] MEDS: GENTAMICIN SULFATE 0.3% 5ML DROPS OD SCH ×2 (11:11→21:32)
[2018-12-14 12:00] VITALS: BP 92/59
--- NOTE | 2018-12-14 14:30 | NUR ---
DC PLAN UPDATE- AUTH REC'D FOR SNF ADVISED BY [facility] THAT PT HAS BEEN ACCEPTED/AUTH RECD FOR [facility]. CALL TO DR. BUTTS, STATES HE WILL PLAN TO WRITE DISCHARGE ORDER/ DO MED REC FIRST THING IN AM WLL [facility] TRANSPORT FORMS BENJAMÍN TO SIGN MED RECS IN AM
[2018-12-14 16:00] VITALS: BP 100/62
--- NOTE | 2018-12-14 16:37 | NUR ---
CONSENT FOR PICC LINE PLACEMENT HAS BEEN SIGNED BY DAUGHTER. PT/PTT HAS BEEN ORDERED FOR AM Addendum: 12/14/18 at 1824 by HEMA CRUZ RN RN ABOVE ENTRY MADE ON WRONG PATIENT.
--- NOTE | 2018-12-14 18:00 | NUR ---
CONDITION UNCHANGED, TOTAL NURSING CARE HAS BEEN RENDERED, FAMILY PARTICIPATES WITH CARE, HAS EATEN FAIRLY WELL TODAY. PENDING ON INSURANCE ACCEPTANCE TO BE MOVED. FAMILY MEMBER AT BEDSIDE AT ALL TIMES.
[2018-12-14 20:00] VITALS: BP 90/53
[2018-12-15] VITALS: BP 108/59
[2018-12-15 04:00] VITALS: BP 100/49
[2018-12-15 08:00] VITALS: BP 94/49
--- NOTE | 2018-12-15 09:55 | NUR ---
KINGA QUEZADA SPOKE TO PRIMARY RN HEMA; STATED THAT FAMILY WOULD LIKE TO GO HOME WITH HOSPICE- AT OWN HOME. ASKED TO HAVE DR. BUTTS CONTACTED ; UPDATE ON CARE; AND ADVISED ON HOSPICE PT WANTS HOSPICE DR. BUTTS IS AFFILIATED WITH CALL TO DR. JEN CARBALLO; DR. BUTTS STATES HOSPICE HOIME WAS OFFERED TO FAMILY LAST WEEK, FAMILY HAD NOT DECIDED THAT AT THAT POINT; AND THT HE WANTS TO BE DEISI THIS IS THE FINAL DECISION BECAUE THE PLAN HADS CHANGED MORE THAN ONCE. ORDER RECD FOR [facility], TO DC WHEN SET UP
[2018-12-15] MEDS: GENTAMICIN SULFATE 0.3% 5ML DROPS OD SCH ×2 (10:19→20:47)
[2018-12-15] MEDS: MULTIVITAMIN TABLET PO SCH (10:19)
[2018-12-15] MEDS: LACTULOSE 20 GM/30 ML UDCUP PO SCH (10:19)
[2018-12-15] MEDS: ALBUMIN (HUMAN) 25% 100 ML IV SCH ×2 (10:19→20:47)
--- NOTE | 2018-12-15 10:45 | NUR ---
DCP/ HOME with [facility]- [phone] Zeny contacted by nurse Power regarding order for hospice information. ZENY met with pt's and daughter Meka. Family states that pt has been telling them that he wants to go home, but family was told by CM that the only way they could get hospice was at home. Family requested to meet with ZENY, but message was never relayed to ZENY. ZENY educated family on hospice in [place], at home, and hospice house. Zeny educated on process for a hospice referral and process for dc once accepted, DME at home, ambulance arranged. Family state they have a friend who is DIRECTOR OF SALES AND MARKETING who has offered to help as needed, and they also have friends in medical field that have offered as well. Pt's daughters are able to provide 24hr care for pt. So family believes with support system, they can provide care for pt at home, where he wants to be. Family requesting time to arrange living room at home to receive DME. Family requesting to remain under care of Dr Pereira and would like to go with his hospice. Zeny informed nurse Holly and CM of above. CM to get order for hospice. ZENY spoke to Adrienne at [facility] [phone]. Jeannie to go meet with family and discuss home needs. Adrienne aware of family wish to dc tomorrow. Adrienne to have Jeannie contact Zeny with updates.
--- NOTE | 2018-12-15 11:36 | NUR ---
FOLLOW-UP COMPLETED. Pt TOLERATING P.O. INTAKE OF NECTAR-THICK LIQUIDS VIA P.O. WITH NO S/S OF ASPIRATION. MOBILE UI/UX DESIGNER PROVIDED EDUCATION ON THICKENING LIQUIDS AND WHERE TO BUY THICKENER IN THE COMMUNITY. DAUGHTER VERBALIZED AGREEMENT AND UNDERSTANDING AT THIS TIME. ALL QUESTIONS ANSWERED. MOBILE UI/UX DESIGNER WILL CONTINUE TO FOLLOW Pt. Addendum: 12/15/18 at 1138 by FARHAD JERONIMO [facility] ST Amended: Links added.
[2018-12-15 12:00] VITALS: BP 86/43
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
--- NOTE | 2018-12-15 13:36 | NUR ---
[facility] Accepted pt - [phone](Adrienne) Dme to be ordered , DME to contact family to schedule delivery time. Rosie [phone] to re contact Nancy with updates on delivery and dc Cm working on transport auth
--- NOTE | 2018-12-15 15:56 | NUR ---
DME- being delivered today Sw karend call from Jeannie at [facility]. Dme is scheduled to be delivered today.
[2018-12-15 16:00] VITALS: BP 102/59
[2018-12-15 20:00] VITALS: BP 96/59
--- NOTE | 2018-12-15 20:50 | NUR ---
MEDS DUE MEDS ADMINISTERED, TOLERATED WELL. KEPT RESTED AND COMFORTABLE. CALL LIGHT WITHIN REACH. FAMILY AT BEDSIDE. WILL MONITOR PT.
[2018-12-16] VITALS: BP 119/58
--- NOTE | 2018-12-16 02:00 | NUR ---
ROUNDS PT RESTING WELL, FAIRLY ASLEEP. NO DISTRESS NOTED. KEPT UNDISTURBED FOR NOW. WILL MONITOR PT.
[2018-12-16 04:00] VITALS: BP 100/51
[2018-12-16 07:30] VITALS: BP 104/59
--- NOTE | 2018-12-16 07:31 | NUR ---
OOHDNR- MD STILL TO SIGN SAW DR. BUTTS ON THE FLOOR- REMINDED HIM OOHDNR IS READY TO SIGN. SUPRISED PT SALIMA, WILL SIGN AND EXPECT DC TODAY AMBULANCE FORM NEEDS TO BE REFAXED WITH SIGNED OOHDNR
[2018-12-16] MEDS: LACTULOSE 20 GM/30 ML UDCUP PO SCH (09:58)
[2018-12-16] MEDS: MULTIVITAMIN TABLET PO SCH (09:58)
[2018-12-16] MEDS: ALBUMIN (HUMAN) 25% 100 ML IV SCH (10:10)
[2018-12-16] MEDS: GENTAMICIN SULFATE 0.3% 5ML DROPS OD SCH (10:15)
[2018-12-16 11:30] VITALS: BP 95/58
--- NOTE | 2018-12-16 11:46 | NUR ---
Nutrition follow-up: Pt. on [facility] Soft 6 small meals diet with Ensure QD. Per family member, pt. tolerating diet well; requesting Chilled Ensure supp. BID. S/P Dysphagia re-evaluation on 12/13/18- BOARD CERTIFIED MUSIC THERAPIST rec. [facility] soft/chopped texture with nectar thick liq., no straws. Labs reviewed(Alb 3.1). LBM: 12/15/18, per family member. SR-13, right abd. incision. Recommendations: 1) Rec. [facility] Soft / Chopped 6 small meals diet with Coates Thick Liquids. 2) Rec. Chilled Vanilla Ensure supp. BID with B'fast and dinner meals. 3) Continue to monitor pt's nutritional status. 4) Consult RD as nutrition concerns arise. Addendum: 12/16/18 at [address] Amended: Links added.
--- NOTE | 2018-12-16 13:07 | NUR ---
ENTERED DC ORDER VERBAL ORDER TO CM YESTERDAY FOR DISCHARGE. ENTERED TODAY. REFAXED EMS FORM WITH SIGNED OOHDNR
--- NOTE | 2018-12-16 15:09 | NUR ---
REPORT CALLED TO [facility] NURSE. ALL QUESTIONS ANSWERED . DISCHARGE INSTRUCTIONS GIVEN TO . ALL QUESTIONS ANSWERED./
--- NOTE | 2018-12-16 16:23 | NUR ---
EMS HERE TO TRANSPORT PATIENT HOME. PATIENT AWAKE AND ALERT. IV DISCONTINUED WITH INNER CANNULA INTACT. INSTRUCTED PATIENT FAMILY MEMBER ON JULIO CÉSAR CATHETER DRAIN AND ALSO INFORMED HOSPICE NURSE BATSHEVA VERDIN . ALL QUESTIONS ANSWERED.
== END 2018-12-16 15:50 | disposition hospice, home (50) | DRG 405 ==
LOC: EDH 08:40 → EDHIP 08:41 → 3BH 21:25
PROVIDERS: ADMIT Family Medicine; ATTEND Family Medicine
PROC: 0W9G3ZZ Drainage of Peritoneal Cavity, Percutaneous Approach (ICD-10-PCS; 2018-12-02)
PROC: 0W1 Anatomical Regions, General, Bypass (ICD-10-PCS; principal; 2018-12-06)
DX: K72.90 Hepatic failure, unspecified without coma (principal); E43 Unspecified severe protein-calorie malnutrition; C22.9 Malignant neoplasm of liver, not specified as primary or secondary; R64 Cachexia; E72.20 Disorder of urea cycle metabolism, unspecified; K92.0 Hematemesis; R18.0 Malignant ascites; R53.81 Other malaise; H10.9 Unspecified conjunctivitis; Z51.5 Encounter for palliative care; Z68.23 Body mass index [BMI] 23.0-23.9, adult; Z85.46 Personal history of malignant neoplasm of prostate
CPT/HCPCS: 36415; 49083; 49418; 70450; 71045; 74178; 80048; 80053; 81001; 82140; 82550; 83605; 83735; 83874; 84484; 85025; 85027; 85610; 85730; 87040; 92610; 93005; 94640; 94664; 97039; G0378; J1644; J3490; J7030; J7608; P9046; Q9963; Q9967